=== PATIENT | female | born 2000 | race Caucasian/White ===

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

== ENCOUNTER 2021-05-17 13:09 | Outpatient (CLI) | payer MEDICAID | END 2021-05-17 13:10 | disposition home or self-care (01) | LOC: COV 13:09 | PROVIDERS: ATTEND Family Medicine | DX: Z20.822 Contact with and (suspected) exposure to COVID-19 (principal) ==